=== PATIENT | female | born 1930 | race Caucasian/White ===

== ENCOUNTER 2018-02-23 12:59 | Emergency (ER) | payer OTHER ==
[~2018-02-23] VITALS: Ht 162.6 cm; Wt 64.9 kg
[2018-02-23 13:01] VITALS: BP 166/79
[2018-02-23] MEDS ORDERED: ANTI-DIARRHEAL2 MG PO (13:23)
[2018-02-23] MEDS ORDERED: LOPRESSOR50 PO (13:24)
[2018-02-23] MEDS ORDERED: LASIX 20 MG TAB20 MG PO (13:24)
[2018-02-23] MEDS ORDERED: ARICEPT 5 MG TAB5 MG PO (13:24)
[2018-02-23] MEDS ORDERED: OXYBUTYNIN 5 MG5 M2 PO (13:25)
[2018-02-23] MEDS ORDERED: KLOR-CON M2020 MEQ PO (13:27)
[2018-02-23] MEDS ORDERED: COUMADIN 5 MG TA5 M1 PO (13:27)
[2018-02-23 14:00] LABS: ABSOLUTE EOSINOPHILS 0.1 thou/uL (0.0-0.7); ABSOLUTE LYMPHOCYTES 0.8 thou/uL (0.8-5.3); ABSOLUTE MONOCYTES 0.3 thou/uL (0.0-1.2); ABSOLUTE NEUTROPHILS 2.4 thou/uL (1.6-8.1); BASOPHILS 1.1 %; EOSINOPHILS 2.8 %; HEMATOCRIT 33.3 % (37.0-47.0); HEMOGLOBIN 11.2 gm/dL (12.0-15.0); LYMPHOCYTES 22.2 %; MCH 33.2 pg (26.0-34.0); MCHC 33.6 g/dL (28.0-37.0); MCV 98.8 fL (80.0-100.0); MONOCYTES 7.6 %; MPV 8.3 fl. (7.2-11.1); NUCLEATED RBCS 0 /100WBC; PLATELET COUNT* 215 thou/uL (150-400); POLYS 66.3 %; RBC 3.37 mil/uL (4.20-5.00); RDW-CV 13.9 % (10.5-14.5); WBC 3.6 thou/uL (4.0-11.0)
[2018-02-23 14:11] LABS: CALCIUM 8.6 mg/dL (8.5-10.1); CREATININE 1.5 mg/dL (0.6-1.3); POTASSIUM 3.9 mmol/L (3.5-5.1)
[2018-02-23 14:15] LABS: ALBUMIN 2.9 g/dL (3.4-5.0); TOTAL BILIRUBIN 0.3 mg/dL (<0.1-1.0); TOTAL PROTEIN 6.1 g/dL (6.4-8.2)
[2018-02-23 14:51] LABS: URINE BILIRUBIN NEGATIVE (Negative); URINE BLOOD NEGATIVE (Negative); URINE CLARITY CLEAR; URINE COLOR YELLOW; URINE GLUCOSE-RANDOM NEGATIVE (Negative); URINE KETONES NEGATIVE (Negative); URINE LEUKOCYTES-REFLEX NEGATIVE (Negative); URINE NITRITE-REFLEX NEGATIVE (Negative); URINE PROTEIN NEGATIVE (Negative); URINE SPECIFIC GRAVITY 1.015 (1.005-1.030); URINE UROBILINOGEN 0.2 E.U./dl (0.2-1.0)
[2018-02-23 16:59] VITALS: BP 141/76
== END 2018-02-23 17:00 | disposition home or self-care (01) ==
LOC: M.ERS 12:59 → M.TBA-ER 16:26 → M.ERS 16:26
PROVIDERS: Personal Emergency Response Attendant
DX: R53.1 Weakness (principal); I48.91 Unspecified atrial fibrillation; I10 Essential (primary) hypertension; F03.90 Unspecified dementia, unspecified severity, without behavioral disturbance, psychotic disturbance, mood disturbance, and anxiety; Z88.1 Allergy status to other antibiotic agents; Z88.8 Allergy status to other drugs, medicaments and biological substances; Z88.5 Allergy status to narcotic agent

== ENCOUNTER 2018-06-17 13:03 | Emergency (ER) | payer OTHER, MEDICAID ==
[~2018-06-17] VITALS: Ht 167.6 cm; Wt 64.9 kg
[~2018-06-17 13:03] MED LIST: ANTI-DIARRHEAL2 MG PO; ARICEPT 5 MG TAB5 MG PO; COUMADIN 5 MG TA5 M1 PO; KLOR-CON M2020 MEQ PO; LASIX 20 MG TAB20 MG PO; LOPRESSOR50 PO; OXYBUTYNIN 5 MG5 M2 PO
[2018-06-17] MEDS ORDERED: LOPRESSOR25 PO (13:20)
[2018-06-17] MEDS ORDERED: ANTI-DIARRHEAL2 M1 PO (13:21)
[2018-06-17] MEDS ORDERED: MAPAP325 MG PO (13:22)
[2018-06-17 13:46] LABS: ABSOLUTE LYMPHOCYTES 0.7 thou/uL (0.8-5.3); ABSOLUTE MONOCYTES 0.3 thou/uL (0.0-1.2); ABSOLUTE NEUTROPHILS 2.6 thou/uL (1.6-8.1); BASOPHILS 0.5 %; EOSINOPHILS 1.2 %; HEMATOCRIT 35.9 % (37.0-47.0); HEMOGLOBIN 11.9 gm/dL (12.0-15.0); LYMPHOCYTES 20.2 %; MCH 32.2 pg (26.0-34.0); MCHC 33.3 g/dL (28.0-37.0); MCV 96.7 fL (80.0-100.0); MONOCYTES 7.7 %; MPV 8.4 fl. (7.2-11.1); NUCLEATED RBCS 0 /100WBC; PLATELET COUNT* 178 thou/uL (150-400); POLYS 70.4 %; RBC 3.71 mil/uL (4.20-5.00); RDW-CV 14.7 % (10.5-14.5); WBC 3.7 thou/uL (4.0-11.0)
[2018-06-17 13:56] LABS: APTT 30.6 Seconds (25.0-31.3); INR 1.3; PROTIME 13.7 Seconds (9.20-11.50)
[2018-06-17 13:59] LABS: URINE BILIRUBIN NEGATIVE (Negative); URINE BLOOD NEGATIVE (Negative); URINE CLARITY CLEAR; URINE COLOR YELLOW; URINE GLUCOSE-RANDOM NEGATIVE (Negative); URINE KETONES NEGATIVE (Negative); URINE LEUKOCYTES-REFLEX TRACE (Negative); URINE NITRITE-REFLEX NEGATIVE (Negative); URINE PROTEIN NEGATIVE (Negative); URINE UROBILINOGEN 0.2 E.U./dl (0.2-1.0)
[2018-06-17 14:04] LABS: ALBUMIN 3.1 g/dL (3.4-5.0); ALKALINE PHOSPHATASE 96 U/L (46-116); ANION GAP 8 mmol/L (7-16); BUN 25 mg/dL (7-18); CALCIUM 8.8 mg/dL (8.5-10.1); CHLORIDE 108 mmol/L (98-107); CO2 26 mmol/L (21-32); CREATININE 1.7 mg/dL (0.6-1.3); GLUCOSE 97 mg/dL (70-99); POTASSIUM 4.5 mmol/L (3.5-5.1); SGOT 13 U/L (15-37); SGPT 8 U/L (30-65); SODIUM 142 mmol/L (136-145); TOTAL BILIRUBIN 0.4 mg/dL (<0.1-1.0); TOTAL PROTEIN 6.4 g/dL (6.4-8.2); TROPONIN-I LEVEL <0.06 ng/mL (<0.06)
[2018-06-17 14:09] LABS: BACTERIA-REFLEX None Seen /HPF (None Seen); CASTS None Seen /LPF (None Seen); CRYSTALS None Seen /LPF (None Seen); SQUAMOUS 0-3 Few /LPF (0-3); URINE RBC None Seen /HPF (0-2); URINE WBC-REFLEX 0-5 Rare /HPF (0-5)
[2018-06-17 14:38] VITALS: BP 150/65
--- NOTE | 2018-06-17 15:17 | EKG ---
[place] [address] ELECTROCARDIOGRAM REPORT Name: PA BAILEY Room: [facility]#: [id number] Admission: 06/17/18 Attend Phys: Discharge: 06/17/18 Date of : [birth year] Report #: [id number] THIS REPORT FOR: //name// [facility] Test Date: 2018-06-17 Test Time: 13:29:58 Pat Name: PA BAILEY Department: Room: Gender: F Hoop Rolls Operator: KAREN : 1930 Requested By: Shiela Miller Order Number: [id number] MD: Rick Summers Measurements Intervals [place] Rate: 76 P: [place]: QRS: -20 QRSD: 90 T: 28 QT: 447 QTc: 503 Interpretive Statements Atrial fibrillation Borderline left axis deviation Consider anterior infarct Prolonged QT interval Artifact in lead(s) aVR,V1,V2,V3,V4,V5,V6 No previous ECG available for comparison Electronically Signed On 06-17-2018 15:17:46 CDT by Rick Summers [email or web address] <ELECTRONICALLY SIGNED> By: Rick Summers MD, [facility] 06/17/18 1517 1329 1329 Rick Summers MD, [facility] /EPI
== END 2018-06-17 14:39 | disposition home or self-care (01) ==
LOC: M.ERS 13:03
PROVIDERS: Physician Assistant
DX: S61.511A Laceration without foreign body of right wrist, initial encounter (principal); I48.2 Chronic atrial fibrillation; I10 Essential (primary) hypertension; F03.90 Unspecified dementia, unspecified severity, without behavioral disturbance, psychotic disturbance, mood disturbance, and anxiety; Z88.1 Allergy status to other antibiotic agents; Z88.5 Allergy status to narcotic agent; Z88.8 Allergy status to other drugs, medicaments and biological substances; W06.XXXA Fall from bed, initial encounter; Y93.89 Activity, other specified; Y92.89 Other specified places as the place of occurrence of the external cause; Y99.8 Other external cause status

== ENCOUNTER 2018-08-04 10:49 | Emergency (ER) | payer OTHER, MEDICAID ==
[~2018-08-04] VITALS: Ht 167.6 cm; Wt 61.0 kg
[~2018-08-04 10:49] MED LIST changes: +ANTI-DIARRHEAL2 M1 PO; +LOPRESSOR25 PO; +MAPAP325 MG PO
[2018-08-04 11:23] LABS: ABSOLUTE MONOCYTES 0.3 thou/uL (0.0-1.2); ABSOLUTE NEUTROPHILS 3.6 thou/uL (1.6-8.1); BASOPHILS 0.8 %; EOSINOPHILS 0.6 %; HEMATOCRIT 37.4 % (37.0-47.0); HEMOGLOBIN 12.4 gm/dL (12.0-15.0); LYMPHOCYTES 19.4 %; MCH 32.2 pg (26.0-34.0); MCHC 33.2 g/dL (28.0-37.0); MCV 97.1 fL (80.0-100.0); MONOCYTES 6.3 %; MPV 8.6 fl. (7.2-11.1); NUCLEATED RBCS 0 /100WBC; PLATELET COUNT* 231 thou/uL (150-400); POLYS 72.9 %; RBC 3.85 mil/uL (4.20-5.00); WBC 4.9 thou/uL (4.0-11.0)
[2018-08-04 11:32] LABS: INR 1.5; PROTIME 15.3 Seconds (9.20-11.50)
[2018-08-04 11:36] LABS: URINE BILIRUBIN NEGATIVE (Negative); URINE BLOOD NEGATIVE (Negative); URINE CLARITY CLEAR; URINE COLOR YELLOW; URINE GLUCOSE-RANDOM NEGATIVE (Negative); URINE KETONES NEGATIVE (Negative); URINE LEUKOCYTES-REFLEX NEGATIVE (Negative); URINE NITRITE-REFLEX NEGATIVE (Negative); URINE PROTEIN NEGATIVE (Negative); URINE UROBILINOGEN 0.2 E.U./dl (0.2-1.0)
[2018-08-04 11:45] LABS: ALBUMIN 3.2 g/dL (3.4-5.0); ALKALINE PHOSPHATASE 92 U/L (46-116); ANION GAP 9 mmol/L (7-16); BUN 28 mg/dL (7-18); CALCIUM 8.8 mg/dL (8.5-10.1); CHLORIDE 105 mmol/L (98-107); CO2 26 mmol/L (21-32); CREATININE 1.8 mg/dL (0.6-1.3); GLUCOSE 93 mg/dL (70-99); NT-PRO BRAIN NAT PEPTIDE 1751 pg/mL (<300); POTASSIUM 4.8 mmol/L (3.5-5.1); SGOT 13 U/L (15-37); SGPT 14 U/L (30-65); SODIUM 140 mmol/L (136-145); TOTAL BILIRUBIN 0.3 mg/dL (<0.1-1.0); TOTAL PROTEIN 6.6 g/dL (6.4-8.2); TROPONIN-I LEVEL <0.06 ng/mL (<0.06)
[2018-08-04 13:30] VITALS: BP 115/67
--- NOTE | 2018-08-05 12:14 | EKG ---
[place] [address] ELECTROCARDIOGRAM REPORT Name: PA BAILEY Room: [facility]#: [id number] Admission: 08/04/18 Attend Phys: Discharge: 08/04/18 Date of : [birth year] Report #: [id number] THIS REPORT FOR: //name// [facility] ED Test Date: 2018-08-04 Test Time: 11:08:53 Pat Name: PA BAILEY Department: Room: Gender: F Director Of Design: Jason WATERS : 1930 Requested By: Sumeet Brock Order Number: [id number] MD: Rick Summers Measurements Intervals [place] Rate: 50 P: [place]: QRS: -17 QRSD: 89 T: 17 QT: 470 QTc: 429 Interpretive Statements Atrial fibrillation Borderline left axis deviation Compared to ECG 06/17/2018 13:29:58 Prolonged QT interval no longer present Electronically Signed On 08-05-2018 12:13:49 CDT by Rick Summers [email or web address] <ELECTRONICALLY SIGNED> By: Rick Summers MD, [facility] 08/05/18 1213 1108 1108 Rick Summers MD, FACC /EPI
== END 2018-08-04 13:30 | disposition home or self-care (01) ==
LOC: M.ERS 10:49
PROVIDERS: Emergency Medicine Emergency Medical Services
DX: M54.5 Low back pain (principal); F03.90 Unspecified dementia, unspecified severity, without behavioral disturbance, psychotic disturbance, mood disturbance, and anxiety; I10 Essential (primary) hypertension; I48.2 Chronic atrial fibrillation; W01.0XXA Fall on same level from slipping, tripping and stumbling without subsequent striking against object, initial encounter; Y93.89 Activity, other specified; Y92.89 Other specified places as the place of occurrence of the external cause; Y99.8 Other external cause status

== ENCOUNTER 2019-01-20 12:37 | Inpatient (IN) | payer OTHER, MEDICAID ==
[~2019-01-20] VITALS: Ht 152.4 cm; Wt 61.4 kg
[2019-01-20 12:41] VITALS: BP 137/61
[2019-01-20 13:12] LABS: ABSOLUTE EOSINOPHILS 0.1 thou/uL (0.0-0.7); ABSOLUTE LYMPHOCYTES 0.7 thou/uL (0.8-5.3); ABSOLUTE MONOCYTES 0.5 thou/uL (0.0-1.2); ABSOLUTE NEUTROPHILS 5.7 thou/uL (1.6-8.1); BASOPHILS 0.7 %; EOSINOPHILS 0.8 %; HEMOGLOBIN 11.9 gm/dL (12.0-15.0); LYMPHOCYTES 9.6 %; MCH 32.9 pg (26.0-34.0); MCHC 33.9 g/dL (28.0-37.0); MONOCYTES 7.1 %; MPV 8.4 fl. (7.2-11.1); NUCLEATED RBCS 0 /100WBC; PLATELET COUNT* 216 thou/uL (150-400); POLYS 81.8 %; RDW-CV 13.9 % (10.5-14.5)
[2019-01-20 13:18] LABS: CALCIUM 9.6 mg/dL (8.5-10.1); CREATININE 1.9 mg/dL (0.6-1.3); POTASSIUM 4.9 mmol/L (3.5-5.1)
[2019-01-20 13:20] LABS: APTT 47.4 Seconds (25.0-31.3); INR 4.4; PROTIME 42.8 Seconds (9.20-11.50)
[2019-01-20 13:29] LABS: TOTAL BILIRUBIN 0.5 mg/dL (<0.1-1.0); TOTAL PROTEIN 6.4 g/dL (6.4-8.2)
[2019-01-20 14:38] VITALS: BP 125/87
[2019-01-20 15:25] VITALS: BP 165/53
[2019-01-20 16:29] LABS: URINE BILIRUBIN NEGATIVE (Negative); URINE BLOOD NEGATIVE (Negative); URINE COLOR YELLOW; URINE GLUCOSE-RANDOM NEGATIVE (Negative); URINE KETONES NEGATIVE (Negative); URINE LEUKOCYTES-REFLEX TRACE (Negative); URINE NITRITE-REFLEX NEGATIVE (Negative); URINE PROTEIN NEGATIVE (Negative); URINE SPECIFIC GRAVITY 1.025 (1.005-1.030); URINE UROBILINOGEN 0.2 E.U./dl (0.2-1.0)
[2019-01-20 16:31] LABS: URINE CLARITY HAZY
[2019-01-20 16:38] LABS: SQUAMOUS >10 Many /LPF (0-3); URINE RBC None Seen /HPF (0-2); URINE WBC-REFLEX 6-15 Few /HPF (0-5)
[2019-01-20 16:39] LABS: BACTERIA-REFLEX 1-9 Few /HPF (None Seen); CASTS None Seen /LPF (None Seen); CRYSTALS None Seen /LPF (None Seen)
--- NOTE | 2019-01-20 17:02 | EKG ---
[place] [address] ELECTROCARDIOGRAM REPORT Name: PA BAILEY Room: [address] ADM IN M.R.#: [id number] Admission: 01/20/19 Attend Phys: Arturo Grady Discharge: Date of : [birth year] Report #: [id number] THIS REPORT FOR: //name// [facility] ED Test Date: 2019-01-20 Test Time: 13:03:34 Pat Name: PA BAILEY Department: Room: [facility] Gender: F Well Control Instructor: : 1930 Requested By: Jonathon Jackson Order Number: [id number] MD: Rick Summers Measurements Intervals [place] Rate: 59 P: [place]: QRS: -17 QRSD: 82 T: 81 QT: 497 QTc: 493 Interpretive Statements Atrial flutter Borderline left axis deviation Abnormal R-wave progression, late transition Borderline ST depression, lateral leads Compared to ECG 08/04/2018 11:08:53 no change Electronically Signed On 01-20-2019 17:02:49 CDT by Rick Summers [email or web address] <ELECTRONICALLY SIGNED> By: Rick Summers MD, FACC 01/20/19 1702 1303 1303 Rick Summers MD, [facility] /EPI
--- NOTE | 2019-01-20 19:16 | NUR ---
PT ADMITTEED FROM ER. AOX3 . DISORIENTED TO TIME. ON 2 L NC. VSS. UP WITH ASSIST X1 AND WALKER TO RESTROOM. IV ABX GIVEN ORDERED. FALL PRECAUTION N PLACE. PT TRIES TO GET OUT OF BED X2 THIS SHIFT. NEW IV IN L FOREARM. CALL LIGHT AT REACH. SAFETY IN PLACE. NO COMPLAINT. DENIES PAIN.
[2019-01-20 19:45] VITALS: BP 133/52
[2019-01-21] VITALS: BP 138/56
[2019-01-21 04:00] VITALS: BP 134/42
--- NOTE | 2019-01-21 06:07 | NUR ---
PT SLEEPING THROUGH THE NIGHT. VSS RA. BED ALARM ON FOR SAFETY. HOURLY ROUNDING COMPLETED. WILL CONTINUE TO MONITOR.
[2019-01-21 08:00] VITALS: BP 134/55
[2019-01-21 10:37] LABS: INR 4.1; PROTIME 39.8 Seconds (9.20-11.50)
[2019-01-21 10:46] LABS: CALCIUM 9.2 mg/dL (8.5-10.1); CREATININE 1.8 mg/dL (0.6-1.3); POTASSIUM 3.9 mmol/L (3.5-5.1)
--- NOTE | 2019-01-21 11:20 | NUR ---
SW called pt dtr to complete initial assessment, introduce self, and SW role. Pt lives at [facility] and pt dtr says that there are not nurses there but pt does receive meals, assist with IADLs, and assist if pt needs EMS called from fall or other concerns. Pt dtr is very supportive and hopeful pt will be able to return to [facility] at dc; pt dtr explained that she realizes pt might not be able to remain at [facility] due to pt dementia. Pt was not using any DME upon hospitalization. No known hx of HH or SNF. SW to continue to follow to assist with safe dc planning.
--- NOTE | 2019-01-21 11:33 | NUR ---
ASSUMED PT CARE REPORT RECEIVED FROM NURSE. PT IS AOX2 , VSS. UP TO CHAIR FOR BREAKFAST. ON RA. FALL PRECAUTION IN PLACE. PT HAD AN EPISODE OF INCONTINENT LOOSE STOOL. PROBIOTIC GIVEN ORDERED. IV FLUID STARTED AT 80 PER HOUR ORDERED. PT CURRENTLY IN BED. CALL LIGHT AT REACH.D ENIES PAIN. WILL CONTINUE TO MONITOR
[2019-01-21 11:56] VITALS: BP 149/58
--- NOTE | 2019-01-21 13:09 | 2DMMODE ---
[place] [address] 2 D/M-MODE ECHOCARDIOGRAM Name: PA BAILEY Gene Room: [address] IN [facility]#: [id number] Admission: 01/20/19 Attend Phys: Humera Gabriel Discharge: Date of : [birth year] Date of Service: 01/21/19 1309 Report #: [id number] THIS REPORT FOR: //name// APPROVED REPORT Study performed: 01/21/2019 10:13:43 EXAM: Comprehensive 2D, Doppler, and color-flow Echocardiogram Patient Location: In-Patient Room #: [facility] Status: routine BSA: 1.56 HR: 76 bpm BP: 134/55 mmHg Rhythm: NSR Other Information Study Quality: Good Indications Syncope 2D Dimensions IVSd: 11.80 (7-11mm) LVOT Diam: 20.61 (18-24mm) LVDd: 47.90 mm PWd: 10.68 (7-11mm) Ascending Ao: 34.97 (22-36mm) LVDs: 29.85 (25-40mm) Aortic Root: 33.02 mm Volumes Left Atrial Volume (Systole) LA ESV Index: 41.40 mL/m2 Aortic Valve AoV Peak Salazar.: 1.21 m/s AO Peak Gr.: 5.83 mmHg LVOT Max P.14 mmHg AO Mean Gr.: 3.44 mmHg LVOT Mean P.95 mmHg LVOT Max V: 0.73 m/s AO V2 VTI: 24.91 cm LVOT Mean V: 0.44 m/s LI (VTI): 2.05 cm2 LVOT V1 VTI: 15.32 cm AI [place]: 3.17 m/s2 AI PHT: 396.45 ms Mitral Valve E/A Ratio: 2.98 [place] [address] 2 D/M-MODE ECHOCARDIOGRAM Name: PA BAILEY Room: [address] IN .R.#: [id number] Admission: 01/20/19 Attend Phys: Humera Gabriel Discharge: Date of : [birth year] Date of Service: 01/21/19 1309 Report #: [id number] MV Decel. Time: 194.76 ms MV E Max Salazar.: 0.83 m/s MV PHT: 56.48 ms MVA (PHT): 3.90 cm2 TDI E/Lateral E': 7.55 E/Medial E': 10.38 Medial E' Salazar.: 0.08 m/s Lateral E' Salazar.: 0.11 m/s Pulmonary Valve PV Peak Salazar.: 0.88 m/s PV Peak Gr.: 3.08 mmHg Tricuspid Valve RAP Estimate: 5.00 mmHg TR Peak Gr.: 26.43 mmHg RVSP: 31.00 mmHg PA Pressure: 31.00 mmHg Left Ventricle The left ventricle is normal size. There is normal LV segmental wall motion. There is normal left ventricular wall thickness. Left ventricular systolic function is normal. LVEF is 60-65%. Transmitral Doppler flow pattern suggests restrictive physiology. Right Ventricle The right ventricle is normal size. The right ventricular systolic function is normal. Atria Left atrium is mildly dilated. Right atrium is mildly dilated. Aortic Valve Mild aortic valve sclerosis. Moderate aortic regurgitation. There is no aortic valvular stenosis. Mitral Valve The mitral valve is normal in structure. Mild mitral regurgitation. No evidence of mitral valve stenosis. Tricuspid Valve The tricuspid valve is normal in structure. Mild tricuspid regurgitation. The RVSP is 30-35 mmHg. Pulmonic Valve The pulmonary valve is normal in structure. [place] [address] 2 D/M-MODE ECHOCARDIOGRAM Name: PA BAILEY Room: [address]#: [id number] Admission: 01/20/19 Attend Phys: Humera Gabriel Discharge: Date of : [birth year] Date of Service: 01/21/19 1309 Report #: [id number] regurgitation. Great Vessels The aortic root is normal in size. IVC is normal in size and collapses >50% with inspiration. Pericardium There is no pericardial effusion. <Conclusion> The left ventricle is normal size. There is normal left ventricular wall thickness. Left ventricular systolic function is normal. LVEF is 60-65%. Transmitral Doppler flow pattern suggests restrictive physiology. Left atrium is mildly dilated. Right atrium is mildly dilated. Mild aortic valve sclerosis. Moderate aortic regurgitation. Mild mitral regurgitation. Mild tricuspid regurgitation. The RVSP is 30-35 mmHg. Mild pulmonic regurgitation. IVC is normal in size and collapses >50% with inspiration. <ELECTRONICALLY SIGNED> By: Igor Lynch MD, FACC 01/21/19 1309 1309 1309 Igor Lynch MD, FACC /INF
[2019-01-21 15:50] VITALS: BP 148/58
--- NOTE | 2019-01-21 18:01 | NUR ---
PT SEEN PHYSOCAL THERAPIST AND OCCUPATIONAL THERAPIST THIS SHIFT.PT GOT OUT OF BED TO CHAIR FOR DINER WELL .PT DAUGHTER VISITED. PT RING WAS GIVEN TO DAUGHTER TO BRING BACK HOME. PT HAS GOOD APPETITE. IV FLUID INFUSING . IV ROCEPHIN GIVEN. PT BACK IN BED. BED ALARM ON. CALL LIGHT AT REACH
[2019-01-21 20:45] VITALS: BP 160/72
[2019-01-22] VITALS (8 sets, daily range): BP systolic 116–180; BP diastolic 35–67
--- NOTE | 2019-01-22 05:35 | NUR ---
PT SLEPT ON AND OFF THIS SHIFT. ASSESSMENT DOCUMENTED. MEDS GIVEN PER E-JUN. NEW IV STARTED THIS SHIFT. PTS HR KEPT DROPPING TO 20'S-30'S FOR ABOUT 15-20 SECONDS BUT WOULD COME BACK UP TO 40'S-50'S, PT DID THIS FOR ABOUT 2.[address] NOTIFIED, ORDERS RECIEVED. CARDIOLOGY CONSULTED, ADDITONAL ORDERS RECIEVED. PRN ATROPINE AT BEDSIDE THIS SHIFT PER DR. EAST. PT UP TO WITH 1 TO BATHROOM THIS SHIFT. WILL CONTINUE WITH PLAN OF CARE.
--- NOTE | 2019-01-22 10:37 | NUR ---
Kevin spoke with Maureen, staff at [facility], she informed that Pt had been doing ok at [facility], and stated that they are able to accept Pt back at [facility]. [place] [phone]
--- NOTE | 2019-01-22 11:29 | EKG ---
[place] [address] ELECTROCARDIOGRAM REPORT Name: PA BAILEY Room: [address] ADM IN M.R.#: [id number] Admission: 01/20/19 Attend Phys: Arturo Grady Discharge: Date of : [birth year] Report #: [id number] THIS REPORT FOR: //name// [facility] Test Date: 2019-01-22 Test Time: 00:12:08 Pat Name: PA BAILEY Department: Room: [address] Gender: F Hasher Machine Operator: : 1930 Requested By: Franko Bella Order Number: [id number] Reading MD: Rick Summers Measurements Intervals [place] Rate: 51 P: CT: QRS: -25 QRSD: 231 T: 65 QT: 501 QTc: 462 Interpretive Statements Atrial flutter Compared to ECG 01/20/2019 13:03:34 no change Electronically Signed On 01-22-2019 11:29:25 CDT by Rick Summers [email or web address] <ELECTRONICALLY SIGNED> By: Rick Summers MD, [facility] 01/22/19 1129 001 Rick Summers MD, FACC /EPI
--- NOTE | 2019-01-22 14:15 | CON ---
[address] [address] CONSULTATION Name: LEOPA Gene Room: [address] IN M.R.#: [id number] Admission: 01/20/19 Attend Phys: Arturo Grady Discharge: Date of : [birth year] Report #: [id number] THIS REPORT FOR: //name// CC: Priscilla Gabriel DATE OF SERVICE: 01/22/2019 CARDIOLOGY CONSULTATION HISTORY OF PRESENT ILLNESS: The patient is an 88-year-old white female, who I was asked to see in the hospital day after she is noted to be bradycardic. The patient's history was obtained from the chart as well as some old records. The patient has a history of memory loss. [facility], the patient has been on multiple medications. She was brought to the Emergency Room last February because she was weak. She was sent back to assisted living. She was brought to the Emergency Room in June of this year, she apparently had tripped at the [place]. There was no loss of consciousness. She was sent back to the [place]. The patient has a history of chronic atrial fibrillation. The patient was brought to the Emergency Room yesterday by the nursing staff when she is felt to be weak. She has a history of dementia. She had no complaints at that time. On the monitor, she was noted to be bradycardic. Cardiology consultation was requested. PAST MEDICAL HISTORY: Significant for chronic atrial fibrillation, dementia, and hypertension. MEDICATIONS: At the prison includes Aricept, Lasix, oxybutynin, potassium, warfarin, metoprolol. ALLERGIES: SHE HAS AN INTOLERANCE TO AMOXICILLIN AND CODEINE. SOCIAL HISTORY: No history of smoking or alcohol abuse. REVIEW OF SYSTEMS: Could not be obtained. PHYSICAL EXAMINATION: GENERAL: Revealed an elderly frail appearing female who is sitting in a chair. She appeared in no distress. VITAL SIGNS: She had a blood pressure of 140/60, pulse is 60. She is afebrile. HEENT: She was anicteric. Conjunctivae are pink. Mucous membranes appear dry. NECK: Veins do not appear distended. CHEST: Clear to auscultation. CARDIOVASCULAR: Irregular rhythm. No significant murmur. ABDOMEN: Soft. EXTREMITIES: [place] [address] CONSULTATION Name: PA BAILEY Room: [address]#: [id number] Admission: 01/20/19 Attend Phys: Arturo Grady Discharge: Date of : [birth year] Report #: [id number] SKIN: Cool and dry. NEUROLOGIC: She is able to move all extremities. LABORATORY AND DIAGNOSTIC DATA: Her ECG showed what appeared to be atrial flutter with a controlled ventricular response rate. No significant ST or T-wave change on the monitor, however, she was having episodes of slow atrial flutter with pauses up to 2.6 seconds in duration. Her workup, she actually had an echocardiogram performed 2 days ago here at [facility] that showed ejection fraction 60%, biatrial enlargement, aortic sclerosis, mild mitral regurgitation, moderate aortic regurgitation. X-rays: She had a portable chest x-ray that showed elevated left hemidiaphragm, otherwise unremarkable. CT scan of the head performed yesterday without contrast showed only atrophy, no acute changes. Lab work: Sodium 143, BUN 26, creatinine 1.8, it was 1.8 in July and glucose 134. Liver function studies were normal. Troponin 0.06. INR is 4.1. White blood cell count 7.0, hemoglobin 11.9, hematocrit 35.0. Urinalysis yesterday negative for protein, negative for blood, trace leukocytes, few bacteria. IMPRESSION AND RECOMMENDATIONS: 1. Chronic atrial fibrillation. Rate noted to be slow. I would hold metoprolol at this time. I would continue anticoagulation, maintain an INR of 2-3. 2. Dementia. 3. Chronic kidney disease. <ELECTRONICALLY SIGNED> By: Rick Summers MD, [facility] 01/22/19 1415 0952 1053Daviseth Summers MD, FACC /nt
[2019-01-22] MEDS ORDERED: CEFDINIR300 MG PO (14:54)
--- NOTE | 2019-01-22 14:54 | NUR ---
Pt discharging back to [facility] today with [facility], faxed referral and orders. Faxed dc orders to [facility]. Updated dtr, dtr to picked edge sewing machine operator and transport at 4pm.
--- NOTE | 2019-01-22 15:55 | NUR ---
pt daughter here to pick pulling machine tender pt and take her to assisted living facility. iv was removed by pt earlier and telemetry was dc'd. pt dressed in clothes she brought and glasses sent with her. pt daughter given instructions, education materials and rx.
== END 2019-01-22 16:03 | disposition home health service (06) | DRG 682 ==
LOC: M.ERS 12:37 → M.2W 14:03 → M.TBA-ER 14:03 → M.2W 15:12
PROVIDERS: Family Medicine; ADMIT Internal Medicine
DX: N17.9 Acute kidney failure, unspecified (principal); G93.41 Metabolic encephalopathy; N39.0 Urinary tract infection, site not specified; I48.20 Chronic atrial fibrillation, unspecified; N18.9 Chronic kidney disease, unspecified; I12.9 Hypertensive chronic kidney disease with stage 1 through stage 4 chronic kidney disease, or unspecified chronic kidney disease; F03.90 Unspecified dementia, unspecified severity, without behavioral disturbance, psychotic disturbance, mood disturbance, and anxiety; Z88.5 Allergy status to narcotic agent; Z88.1 Allergy status to other antibiotic agents; Z88.8 Allergy status to other drugs, medicaments and biological substances; Z79.01 Long term (current) use of anticoagulants

== ENCOUNTER 2019-02-01 18:56 | Emergency (ER) | payer OTHER, MEDICAID ==
[~2019-02-01] VITALS: Ht 160 cm; Wt 73.0 kg
[~2019-02-01 18:56] MED LIST changes: +CEFDINIR300 MG PO
[2019-02-01 19:36] LABS: URINE BILIRUBIN NEGATIVE (Negative); URINE BLOOD NEGATIVE (Negative); URINE CLARITY CLEAR; URINE COLOR YELLOW; URINE GLUCOSE-RANDOM NEGATIVE (Negative); URINE KETONES NEGATIVE (Negative); URINE LEUKOCYTES-REFLEX NEGATIVE (Negative); URINE NITRITE-REFLEX NEGATIVE (Negative); URINE PROTEIN NEGATIVE (Negative); URINE UROBILINOGEN 0.2 E.U./dl (0.2-1.0)
[2019-02-01 19:47] LABS: ABSOLUTE EOSINOPHILS 0.1 thou/uL (0.0-0.7); ABSOLUTE LYMPHOCYTES 1.2 thou/uL (0.8-5.3); ABSOLUTE MONOCYTES 0.3 thou/uL (0.0-1.2); ABSOLUTE NEUTROPHILS 3.1 thou/uL (1.6-8.1); BASOPHILS 0.7 %; EOSINOPHILS 1.3 %; HEMATOCRIT 31.9 % (37.0-47.0); HEMOGLOBIN 10.9 gm/dL (12.0-15.0); LYMPHOCYTES 24.9 %; MCH 32.8 pg (26.0-34.0); MCHC 34.1 g/dL (28.0-37.0); MCV 96.3 fL (80.0-100.0); MONOCYTES 6.5 %; MPV 8.1 fl. (7.2-11.1); NUCLEATED RBCS 0 /100WBC; PLATELET COUNT* 227 thou/uL (150-400); POLYS 66.6 %; RBC 3.32 mil/uL (4.20-5.00); RDW-CV 13.9 % (10.5-14.5); WBC 4.7 thou/uL (4.0-11.0)
[2019-02-01 19:57] LABS: CALCIUM 9.1 mg/dL (8.5-10.1); INR 1.6; POTASSIUM 4.4 mmol/L (3.5-5.1); PROTIME 16.1 Seconds (9.20-11.50)
[2019-02-01 20:01] LABS: MAGNESIUM 1.8 mg/dL (1.8-2.4); TOTAL BILIRUBIN 0.2 mg/dL (<0.1-1.0); TOTAL PROTEIN 6.1 g/dL (6.4-8.2)
[2019-02-01 20:06] LABS: BE -0.6 mmol/L (-2 to +3); PCO2 21.5 mmHg (35.0-45.0); pH 7.579 (7.340-7.450)
[2019-02-01 23:17] VITALS: BP 102/53
== END 2019-02-01 23:18 | disposition home or self-care (01) ==
LOC: M.ERS 18:56
PROVIDERS: Personal Emergency Response Attendant
DX: R10.30 Lower abdominal pain, unspecified (principal); R41.0 Disorientation, unspecified; I10 Essential (primary) hypertension; I48.20 Chronic atrial fibrillation, unspecified; F03.90 Unspecified dementia, unspecified severity, without behavioral disturbance, psychotic disturbance, mood disturbance, and anxiety; Z88.1 Allergy status to other antibiotic agents; Z88.6 Allergy status to analgesic agent; Z88.8 Allergy status to other drugs, medicaments and biological substances

== ENCOUNTER 2019-03-27 19:36 | Emergency (ER) | payer OTHER, MEDICAID ==
[~2019-03-27] VITALS: Ht 167.6 cm; Wt 61.2 kg
[2019-03-27 20:16] LABS: ABSOLUTE EOSINOPHILS 0.1 thou/uL (0.0-0.7); ABSOLUTE MONOCYTES 0.3 thou/uL (0.0-1.2); ABSOLUTE NEUTROPHILS 2.7 thou/uL (1.6-8.1); EOSINOPHILS 1.8 %; HEMATOCRIT 35.8 % (37.0-47.0); LYMPHOCYTES 24.8 %; MCH 32.7 pg (26.0-34.0); MCHC 33.5 g/dL (28.0-37.0); MCV 97.6 fL (80.0-100.0); MPV 9.1 fl. (7.2-11.1); NUCLEATED RBCS 0 /100WBC; PLATELET COUNT* 207 thou/uL (150-400); POLYS 64.4 %; RBC 3.67 mil/uL (4.20-5.00); RDW-CV 14.3 % (10.5-14.5); WBC 4.2 thou/uL (4.0-11.0)
[2019-03-27 20:24] LABS: INR 4.2
[2019-03-27 20:25] LABS: CALCIUM 8.9 mg/dL (8.5-10.1); CREATININE 1.8 mg/dL (0.6-1.3); POTASSIUM 4.3 mmol/L (3.5-5.1)
[2019-03-27 20:35] LABS: ALBUMIN 2.9 g/dL (3.4-5.0); TOTAL BILIRUBIN 0.3 mg/dL (<0.1-1.0); TOTAL PROTEIN 6.1 g/dL (6.4-8.2)
[2019-03-27 20:54] LABS: URINE BILIRUBIN NEGATIVE (Negative); URINE BLOOD NEGATIVE (Negative); URINE CLARITY CLEAR; URINE COLOR YELLOW; URINE GLUCOSE-RANDOM NEGATIVE (Negative); URINE KETONES NEGATIVE (Negative); URINE NITRITE-REFLEX NEGATIVE (Negative); URINE PROTEIN NEGATIVE (Negative); URINE UROBILINOGEN 0.2 E.U./dl (0.2-1.0)
[2019-03-27 20:55] LABS: URINE LEUKOCYTES-REFLEX NEGATIVE (Negative)
[2019-03-27 21:19] VITALS: BP 125/59
--- NOTE | 2019-03-28 13:28 | EKG ---
[place] [address] ELECTROCARDIOGRAM REPORT Name: PA BAILEY Room: [facility]#: [id number] Admission: 03/27/19 Attend Phys: Discharge: 03/27/19 Date of : [birth year] Report #: [id number] THIS REPORT FOR: //name// [facility] ED Test Date: 2019-03-27 Test Time: 19:42:34 Pat Name: PA BAILEY Department: Room: Gender: F Battery Tester And Repairer: : 1930 Requested By: Mario Reyna Order Number: [id number] : Bruce Salinas Measurements Intervals [place] Rate: 58 P: [place]: QRS: -16 QRSD: 101 T: 47 QT: 466 QTc: 458 Interpretive Statements Atrial fibrillation Borderline left axis deviation Compared to ECG 01/22/2019 00:12:08 Atrial flutter no longer present Electronically Signed On 03-28-2019 13:28:04 NETWORK INTERN by Bruce Salinas [email or web address] <ELECTRONICALLY SIGNED> By: Bruce Salinas MD, [facility] 03/28/19 1328 41 41 Bruce Salinas MD, FACC /EPI
== END 2019-03-27 21:24 | disposition home or self-care (01) ==
LOC: M.ERS 19:36
PROVIDERS: Emergency Medicine
DX: R41.82 Altered mental status, unspecified (principal); R10.9 Unspecified abdominal pain; I10 Essential (primary) hypertension; I48.20 Chronic atrial fibrillation, unspecified; F03.90 Unspecified dementia, unspecified severity, without behavioral disturbance, psychotic disturbance, mood disturbance, and anxiety; Z88.1 Allergy status to other antibiotic agents; Z88.5 Allergy status to narcotic agent; Z88.8 Allergy status to other drugs, medicaments and biological substances